=== PATIENT | female | born 2005 | race African-American/Black ===

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

== ENCOUNTER 2025-01-23 18:57 | Emergency (ER) | payer OTHER, SELFPAY ==
[2025-01-23 19:51] LABS: Pregnancy Test - Urine (BHCG) Negative (Negative); Pregu Control Background? CLEAR/WHITE (CLR/WHITE); Pregu Control Bar Appear? YES (CONTROL BAR)
[2025-01-23 20:03] LABS: CAUTI Indications for Culture Dysuria,urgency,freq; Glucose, Urine (Dipstick) Normal (Negative); Leukocyte 25 Leu/uL (Negative); Protein, Urine (Dipstick) Negative (Neg-Trace); Specific Gravity, Urine 1.024 (1.002-1.036)
[2025-01-23 20:07] LABS: Bacteria/HPF 1+ HPF (None Seen)
[2025-01-23 20:08] LABS: Urine Culture Reflex No No
[2025-01-23] MEDS ORDERED: Azithromycin 250 MG TAB ONE (20:36)
[2025-01-23] MEDS ORDERED: cefTRIAXone (ROCEPHIN) 500 MG VIAL ONE (20:36)
[2025-01-24 14:07] LABS: Chlamydia by PCR, Vaginal Swab Not Detected (NotDetected); GC by PCR, Vaginal Swab Not Detected (NotDetected)
== END 2025-01-23 22:13 | disposition home or self-care (01) ==
LOC: ERS 18:57
DX: N39.0 Urinary tract infection, site not specified (principal); Z20.2 Contact with and (suspected) exposure to infections with a predominantly sexual mode of transmission
CPT/HCPCS: 81001; 81025; 87480; 87491; 87510; 87591; 87660; 96372; 99283; J0696

== ENCOUNTER 2025-03-30 18:34 | Emergency (ER) | payer SELFPAY, OTHER | END 2025-03-30 21:02 | disposition home or self-care (01) | LOC: ERS 18:34 | DX: S62.524A Nondisplaced fracture of distal phalanx of right thumb, initial encounter for closed fracture (principal); Z79.899 Other long term (current) drug therapy; W19.XXXA Unspecified fall, initial encounter; Y99.0 Civilian activity done for income or pay | CPT/HCPCS: 29125; 99283 ==